=== PATIENT | male | born 1960 | race Two or more races ===

== ENCOUNTER 2021-01-13 16:40 | Inpatient (IN) | payer OTHER ==
[~2021-01-13] VITALS: Ht 190.5 cm; Wt 103.4 kg
[2021-01-13] MEDS ORDERED: ACETAMINOPHEN 325MG TABLET PO ONE (17:45)
[2021-01-13] MEDS ORDERED: PREDNISONE 20MG TABLET PO ONE (17:45)
[2021-01-13] MEDS ORDERED: IPRATROPIUM/ALBUTEROL 0.5-3(2.5)MG/3ML NEB HHN ONE ×2 (17:45→19:45)
[2021-01-13] MEDS ORDERED: MORPHINE SULFATE 4 MG/ML CPJ (NOT FOR IM USE) IV ONE (17:45)
[2021-01-13 17:56] LABS: BASOPHILS % 0.7 % (0.0-2.0); HEMATOCRIT. 41.6 % (42.0-52.0); HEMOGLOBIN. 14.3 g/dL (14.0-18.0); LYMPHOCYTES % 25.5 % (20.0-50.0); MEAN CORPUSCULAR HEMOGLOBIN 31.4 pg (28.0-32.0); MEAN CORPUSCULAR VOLUME 91.1 fL (80.0-94.0); MEAN PLATELET VOLUME 8.6 fl (7.4-10.4); MONOCYTES % 10.6 % (2.0-8.0); NEUTROPHILS % 63.2 % (40.0-76.0); PLATELET 164 x1000/uL (130-400); RED BLOOD CELL COUNT 4.56 mill/uL (4.7-6.1); RED CELL DISTRIBUTION WIDTH 12.7 % (11.6-14.6)
[2021-01-13 18:03] LABS: CHLORIDE 101 mEq/L (98-107)
[2021-01-13] MEDS ORDERED: AZITHROMYCIN 500 MG TABLET PO ONE (19:45)
[2021-01-13] MEDS ORDERED: ZOLPIDEM TARTRATE 5MG TABLET PO PRN (23:30)
[2021-01-13] MEDS ORDERED: ONDANSETRON HCL 4MG/2ML INJ IV PRN (23:30)
[2021-01-13] MEDS ORDERED: ACETAMINOPHEN 325MG TABLET PO PRN (23:30)
[2021-01-13] MEDS ORDERED: DIPHENHYDRAMINE 50MG/ML VIAL IV PRN (23:30)
[2021-01-13] MEDS ORDERED: ALBUTEROL 6.7GM HFA INHALER ORI PRN (23:30)
[2021-01-14] VITALS (7 sets, daily range): BP systolic 106–141; BP diastolic 61–90
[2021-01-14] MEDS ORDERED: ENOXAPARIN 40MG/0.4ML SYR SUBCUT SCH (00:30)
[2021-01-14] MEDS ORDERED: ERGOCALCIFEROL 50000UNITS CAPSULE PO SCH (01:00)
[2021-01-14] MEDS: GUAIFENESIN 200MG/10ML SUGAR FREE UDC PO PRN ×2 (02:26→08:57)
[2021-01-14] MEDS: LEVOFLOXACIN 500MG PREMIX 100 ML IV SCH (02:26)
[2021-01-14] MEDS: SODIUM CHLORIDE 0.9% INJ 3ML FLUSH IVF SCH ×3 (05:15→21:27)
[2021-01-14] MEDS: GUAIFENESIN 600MG ER TABLET PO SCH ×2 (08:57→21:26)
[2021-01-14] MEDS: PROMETHAZINE/DEXTROMETHORPHAN 6.25-15MG/5ML BOTTLE 120ML PO PRN ×2 (11:13→18:03)
[2021-01-14] MEDS: ACETAMINOPHEN 325MG TABLET PO PRN (18:26)
[2021-01-14] MEDS: ENOXAPARIN 40MG/0.4ML SYR SUBCUT SCH (21:26)
[2021-01-15] VITALS: BP 118/76
[2021-01-15] MEDS: ACETAMINOPHEN 325MG TABLET PO PRN ×2 (00:32→21:09)
[2021-01-15] MEDS: LEVOFLOXACIN 500MG PREMIX 100 ML IV SCH (00:32)
[2021-01-15 04:00] VITALS: BP 100/64
[2021-01-15] MEDS: SODIUM CHLORIDE 0.9% INJ 3ML FLUSH IVF SCH ×3 (05:51→21:16)
[2021-01-15 08:00] VITALS: BP 113/59
[2021-01-15] MEDS: GUAIFENESIN 600MG ER TABLET PO SCH ×2 (09:00→21:03)
[2021-01-15] MEDS: PROMETHAZINE/DEXTROMETHORPHAN 6.25-15MG/5ML BOTTLE 120ML PO PRN ×2 (09:00→13:19)
[2021-01-15 12:00] VITALS: BP 129/78
[2021-01-15] MEDS ORDERED: HYDROCODONE/ACETAMINOPHEN 10/325MG TABLET PO PRN (12:15)
[2021-01-15] MEDS: KETOROLAC 30MG/ML VIAL IV PRN ×3 (12:22→21:16)
[2021-01-15] MEDS ORDERED: NALOXONE HCL 0.4MG/ML VIAL IV PRN (12:30)
[2021-01-15 16:00] VITALS: BP 96/61
[2021-01-15 20:00] VITALS: BP 133/81
[2021-01-15] MEDS: ENOXAPARIN 40MG/0.4ML SYR SUBCUT SCH (21:03)
[2021-01-16] VITALS: BP 122/72
[2021-01-16] MEDS: LEVOFLOXACIN 500MG PREMIX 100 ML IV SCH (00:47)
[2021-01-16 04:00] VITALS: BP 115/77
[2021-01-16] MEDS: ACETAMINOPHEN 325MG TABLET PO PRN (04:44)
[2021-01-16] MEDS: SODIUM CHLORIDE 0.9% INJ 3ML FLUSH IVF SCH ×3 (04:48→20:49)
[2021-01-16 08:00] VITALS: BP 129/63
[2021-01-16] MEDS: GUAIFENESIN 600MG ER TABLET PO SCH ×2 (08:22→20:47)
[2021-01-16] MEDS: KETOROLAC 30MG/ML VIAL IV PRN ×3 (08:23→20:48)
[2021-01-16] MEDS: PROMETHAZINE/DEXTROMETHORPHAN 6.25-15MG/5ML BOTTLE 120ML PO PRN ×2 (08:24→14:24)
[2021-01-16 11:54] VITALS: BP 102/65
[2021-01-16 16:00] VITALS: BP 100/73
[2021-01-16] MEDS: ENOXAPARIN 30MG/0.3ML SYR SUBCUT SCH (18:01)
[2021-01-16 20:00] VITALS: BP 114/81
[2021-01-17] VITALS: BP 110/86
[2021-01-17] MEDS: LEVOFLOXACIN 500MG PREMIX 100 ML IV SCH (01:05)
[2021-01-17 04:00] VITALS: BP 123/87
[2021-01-17] MEDS: SODIUM CHLORIDE 0.9% INJ 3ML FLUSH IVF SCH ×2 (05:26→14:00)
[2021-01-17] MEDS: ENOXAPARIN 30MG/0.3ML SYR SUBCUT SCH (05:26)
[2021-01-17 08:00] VITALS: BP 129/73
[2021-01-17] MEDS: GUAIFENESIN 600MG ER TABLET PO SCH (08:11)
[2021-01-17 12:00] VITALS: BP 119/77
[2021-01-17 13:19] VITALS: BP 121/75
== END 2021-01-17 14:00 | disposition home or self-care (01) | DRG 871 ==
LOC: ER 16:40 → MICUSO 18:17 → 7WST 01-14 00:36
PROVIDERS: ADMIT Internal Medicine; ATTEND Internal Medicine
DX: A41.89 Other specified sepsis (principal); U07.1 COVID-19; J12.82 Pneumonia due to coronavirus disease 2019; J96.00 Acute respiratory failure, unspecified whether with hypoxia or hypercapnia; Z87.891 Personal history of nicotine dependence
CPT/HCPCS: 36415; 71045; 80053; 82728; 83615; 83880; 84145; 84484; 85025; 85379; 86140; 87426; 93005; 94640; 99285; J1650; J1885; J1956; J2270; J7040; J7512; U0003; U0005